=== PATIENT | female | born 1980 | race Caucasian/White ===

== ENCOUNTER 2016-11-04 10:56 | Observation (INO) | payer BC, OTHER ==
[2016-11-04 11:25] LABS: % IMMATURE GRANULYOCYTES 0.4 % (0.0-1.1); ABSOLUTE IMMATURE GRANULOCYTES 0.07 10^3/uL (0.00-0.10); ADD DIFF? NO; ADD MORPH? NO; ADD SCAN? NO; ATYPICAL LYMPHOCYTE FLAG 10 (0-99); FRAGMENT RBC FLAG 0 (0-99); HEMATOCRIT 41.6 % (38.0-47.0); LEFT SHIFT FLG 10 (0-99); LIPEMIA HEMOLYSIS FLAG 80 (0-99); MEAN CELL HEMOGLOBIN 30.7 pg (27.9-34.1); MEAN CELL HEMOGLOBIN CONCENTR. 33.7 g/dL (32.4-36.7); MEAN CELL VOLUME 91.2 fL (81.5-99.8); MEAN PLATELET VOLUME 10.6 fL (8.7-11.7); PLATELET CLUMPS FLAG 0 (0-99); PLATELET COUNT 273 10^3/uL (150-400); RED BLOOD CELL COUNT 4.56 10^6/uL (4.18-5.33); RED CELL DISTRIBUTION WIDTH 12.4 % (11.5-15.2)
[2016-11-04 11:32] VITALS: TEMP 98.1
--- NOTE | 2016-11-04 11:33 | EDPHY ---
H & P Stated Complaint: 9 WEEKS PREG, BLEEDING SINCE 0500 - Personal History LMP (Females 10-55): Current Tetanus/Diphtheria Vaccine: Yes Current Tetanus Diphtheria and Acellular Pertussis (TDAP): Yes - Medical/Surgical History Hx Asthma: No Hx Chronic Respiratory Disease: No Hx Diabetes: No Hx Cardiac Disease: No Hx Renal Disease: No Hx Cirrhosis: No Hx Alcoholism: No Hx HIV/AIDS: No Hx Splenectomy or Spleen Trauma: No Other PMH: PMH- - Social History Smoking Status: Never smoked Time Seen by Provider: 11/04/16 11:12 HPI/ROS: CHIEF COMPLAINT: , vaginal bleeding HISTORY OF PRESENT ILLNESS: 36-year-old female SAB 1, currently approximately 9 weeks , 4 home positive tests within the past 1 week, started experiencing spotting last evening, with development of suprapubic cramping and further vaginal bleeding this morning as well as dizziness. She was unable to ambulate without assistance secondary to dizziness. Arrives via private vehicle. She is complaining of continued mild suprapubic cramping as well as vaginal bleeding and new onset of a vomiting since in the waiting room. She denies: Fever, chills, urinary complaints, trauma, flu-like symptoms. Multiple family members have had cold-like symptoms in the past week which have now resolved. PR[facility] CARE PROVIDER[facility] [place]. Patient recently moved from [place] has no local OBGYN REVIEW OF SYSTEMS: A ten point review of systems was performed and is negative with the exception of the items mentioned in the HPI PAST MEDICAL & SURGICAL HISTORY: SAB 1, currently breast feeding a 10- month-old child SOCIAL HISTORY: nonsmoker PHYSICAL EXAM (Prior to examination, patient consented to physical exam, hands were washed and my usual and customary physical exam procedures followed) 1) GENERAL: Well-developed, well-nourished, alert and oriented. Appears uncomfortable. 2) HEAD: Normocephalic, atraumatic 3) HEENT: Pupils equal, round, reactive to light bilaterally. Sclera anicteric. Nasopharynx, oropharynx, clear, no lesions. 4) NECK: Full range of motion, no meningeal signs. 5) LUNGS: Clear auscultation bilaterally, no wheezes, no rhonchi, no retractions. 6) HEART: Regular rate and rhythm, no murmur, no heave, no gallop. 7) ABDOMEN: No guarding, no rebound, no focal tenderness, negative McBurney's, negative Rosales's, negative Rovsing's, negative peritoneal sign, I am unable to elicit any abdominal pain 8) MUSCULOSKELETAL: Moving all extremities, no focal areas of tenderness, no obvious trauma. No peripheral edema or discoloration. 9) BACK: No CVA tenderness. 10) SKIN: No rash, no petechiae. 11) PELVIC (with female tech Radha at bedside): Normal female external genitalia, blood on the external genitalia, multiple clots removed in the vaginal vault. Os is open active bleeding DIFFERENTIAL DIAGNOSIS: no particular include but limited to spontaneous miscarriage, completed miscarriage, ectopic (Michaela Escobedo) Constitutional: Initial Vital Signs Temperature (C) 36.7 C 11/04/16 10:59 Heart Rate 69 11/04/16 10:59 Respiratory Rate 20 11/04/16 10:59 Blood Pressure 98/73 L 11/04/16 10:59 O2 Sat (%) 100 11/04/16 10:59 O2 Delivery Mode Room Air Allergies/Adverse Reactions: No Known Allergies Allergy (Unverified 11/04/16 11:00) Home Medications: Medication Instructions Recorded NK [No Known Home Meds] 11/04/16 Medical Decision Making ED Course/Re-evaluation: PHYSICIAN DOCUMENTATION: The patient was evaluated and managed by the Physician Tube Inspector and myself. I have reviewed the chart and agree with the findings and plan of care as documented. In addition, I examined the patient myself at 1305. History confirmed as bleeding today, history of . Physical findings as follows : Blood pressure 95 to 86 systolic while I am in the room, alert and normally conversant. Admission to Labor and delivery for OBGYN consultation and probable D and C, hematocrit decreasing and hypotensive in the emergency department with continued bleeding. I am the secondary supervising physician. (Eric Baron) Serial evaluations performed on patient. Discussed her imaging results showing active spontaneous . She is passing multiple clots , has active vaginal bleeding with drop in hematocrit. Discussed with patient my recommendation for admission for possible dilatation curettage. Patient is agreeable with this. She remains NPO since last evening. Patient also seen exam by Dr. Eric Baron. 1:02 p.m.: Phone consultation with Dr. Karmen Oconnor who will admit patient, planned for likely dilatation and curettage. Request that patient go from the emergency department to Labor and delivery floor 1st and she will consult patient there . (Michaela Escobedo) - Data Points Laboratory Results: Laboratory Results 11/04/16 11:15 11/04/16 11:15 11/04/16 11/04/16 11/04/16 12:43 11:51 11:15 WBC 15.98 H 10^3/uL (3.80-9.50) RBC 4.56 10^6/uL (4.18-5.33) Hgb 14.0 g/dL (12.6-16.3) POC Hgb 12.2 L gm/dL (12.3-15.9) Hct 41.6 % (38.0-47.0) POC Hct 36 % (35.5-47.5) MCV 91.2 fL (81.5-99.8) MCH 30.7 pg (27.9-34.1) MCHC 33.7 g/dL (32.4-36.7) RDW 12.4 % (11.5-15.2) Plt Count 273 10^3/uL (150-400) MPV 10.6 fL (8.7-11.7) Neut % (Auto) 85.4 H % (39.3-74.2) Lymph % (Auto) 9.8 L % (15.0-45.0) Griggs % (Auto) 3.6 L % (4.5-13.0) Eos % (Auto) 0.4 L % (0.6-7.6) Baso % (Auto) 0.4 % (0.3-1.7) Nucleat RBC Rel Count 0.0 % (0.0-0.2) Absolute Neuts (auto) 13.64 H 10^3/uL (1.70-6.50) Absolute Lymphs (auto) 1.57 10^3/uL (1.00-3.00) Absolute Monos (auto) 0.57 10^3/uL (0.30-0.80) Absolute Eos (auto) 0.07 10^3/uL (0.03-0.40) Absolute Basos (auto) 0.06 10^3/uL (0.02-0.10) Absolute Nucleated RBC 0.00 10^3/uL (0-0.01) Immature Gran % 0.4 % (0.0-1.1) Immature Gran # 0.07 10^3/uL (0.00-0.10) POC Sodium 140 mEq/L (134-144) Sodium 140 mEq/L (134-144) POC Potassium 4.4 mEq/L (3.3-5.0) Potassium 4.5 mEq/L (3.5-5.2) POC Chloride 107 mEq/L (96-108) Chloride 106 mEq/L (97-110) Carbon Dioxide 21 L mEq/l (22-31) Anion Gap 13 mEq/L (8-16) POC BUN 13 mg/dL (7-23) BUN 12 mg/dL (7-23) Creatinine 0.6 mg/dL (0.6-1.0) POC Creatinine 0.6 mg/dL (0.6-1.2) Estimated GFR > 60 Glucose 124 H mg/dL (70-100) POC Glucose 115 H mg/dL (70-100) Calcium 9.3 mg/dL (8.5-10.4) Beta HCG, Qual POSITIVE Beta HCG, Quant 4723.20 H mIU/mL (0-4.83) Patient ABO/Rh A POSITIVE Medications Given: Discontinued Medications Sodium Chloride (Ns) 1,000 mls @ 0 mls/hr IV ONCE ONE PRN Reason: Wide Open Stop: 11/04/16 12:24 Last Admin: 11/04/16 12:23 Dose: 1,000 mls Point of Care Test Results: 11/04/16 12:43 POC Sodium 140 POC Potassium 4.4 POC Chloride 107 POC BUN 13 POC Creatinine 0.6 POC Glucose 115 H Departure - Departure Disposition: [facility] Inpatient Acute Clinical Impression: Miscarriage, Anemia Condition: Fair
[2016-11-04 11:36] LABS: ANION GAP 13 mEq/L (8-16); CALCIUM 9.3 mg/dL (8.5-10.4); CARBON DIOXIDE 21 mEq/l (22-31); CHLORIDE 106 mEq/L (97-110); CREATININE 0.6 mg/dL (0.6-1.0); GLOMERULAR FILTRATION RATE > 60; GLUCOSE 124 mg/dL (70-100); POTASSIUM 4.5 mEq/L (3.5-5.2); SODIUM 140 mEq/L (134-144)
--- NOTE | 2016-11-04 11:39 | CPEKG ---
Heart Rate: 62 RR Interval: 968 P-R Interval: 172 QRSD Interval: 84 QT Interval: 448 QTC Interval: 455 P [place]: 1 QRS [place]: 69 T Wave [place]: 54 EKG Severity - NORMAL ECG - EKG Impression: SINUS RHYTHM Electronically Signed By: Eric Baron 04-Nov-2016 13:41:13
[2016-11-04] MEDS ORDERED: NS 1,000 ML IV ONE ×2 (12:23→13:20)
--- NOTE | 2016-11-04 12:59 | US ---
Ultrasound Pelvis Complete (Transabdominal and Endovaginal) Including Duplex/Doppler Imaging History: evaluation. Vaginal bleeding. Pain. Technique: Transabdominal and endovaginal ultrasound images were obtained. Endovaginal images obtain ed for better evaluation of the uterine myometrium and adnexa. Duplex/Doppler imaging of adnexa. Findings: Uterus measures 11.3 x 5.8 x 5.2 cm. Endometrial thickness is 7 mm. There is a focal fluid collection present in the lower uterine segment near the internal cervical os which could represent a abnormal gestational sac. No parts are identified within the fluid collection. This fluid col lection measures 2.8 x 1.2 x 1.7 cm in size. Calcified 1.5 cm fibroid in the fundal myometrium. Right ovary measures 2.6 x 1.7 x 2.8 cm. Left ovary measures 2.9 x 2.9 x 1.6 cm. No adnexal masses. No significant free fluid in the pelvis. Color Doppler flow to both ovaries without torsion. Impression: Abnormal fluid collection in the lower uterine segment, potential abnormal gestational sa c, without parts. This may represent a spontaneous in progress. Follow-up sonography m ay be of benefit as clinically appropriate. Results called to Chuckie Escobedo PA-C, at 12:50 PM.
[2016-11-04 13:24] VITALS: BP 95/72; PULSE 65; RESP 18; O2SAT 98
[2016-11-04] MEDS ORDERED: DOXYCYCLINE INJ 100 MG in NS 250 ML IV ONE (14:00)
[2016-11-04] MEDS ORDERED: MISOPROSTOL 200 MCG TAB ONE (14:12)
[2016-11-04] MEDS ORDERED: MIDAZOLAM 2 MG/2 ML VIAL ONE (14:12)
[2016-11-04] MEDS ORDERED: fentaNYL 100 MCG/2 ML INJ ONE (14:12)
[2016-11-04] MEDS ORDERED: PROPOFOL/EMULSION 500 MG/50 ML BOTTLE IV ONE (14:13)
[2016-11-04] MEDS ORDERED: AMMONIA AROMATIC 1 EACH AMP IH ONE (14:46)
--- NOTE | 2016-11-04 21:37 | GOP ---
[f rep st] OPERATIVE REPORT DATE OF OPERATION: 11/04/2016 SURGEON: Karmen Oconnor DO STRATEGIC COMMUNICATIONS SPECIALIST: None. ANESTHESIA: LMA. PREOPERATIVE DIAGNOSIS: Spontaneous , actively bleeding, hypotension. POSTOPERATIVE DIAGNOSIS: Spontaneous , actively bleeding, hypotension. PROCEDURE PERFORMED: Suction dilation and curettage. INDICATIONS FOR OPERATION: The patient is a 36-year-old, 3, para 2-0-0- 2 with the last menstrual period 09/07/2016 at 8 weeks and 1 day who presented today with heavy vaginal bleeding, clots, and cramping as well as nausea, vomiting. The patient was seen in emergency room where she was found to be actively bleeding, having a dilated cervix and passing clots. The patient had dropped her hematocrit from 45 to 41 in just about an hour. A pelvic ultrasound was done that did show heterogeneous mass in the lower uterine segment about 2 x 2 cm. Patient stated she passed what looked like tissue. The patient was counseled to proceed with a suction dilation and curettage secondary to active bleeding and her being hypotensive. Consents were obtained ; risks, benefits, and alternatives were reviewed with the patient. The patient understands the risks and wants to proceed with the surgery at this time. FINDINGS: The uterus was gently sounded to 9-10 cm. The os was dilated to about 3 cm. Active bleeding noted. Moderate amount of clots were noted in the vault as well as cervical os. An 8 mm curved suction curette was used. Minimal bleeding noted at the end of the procedure. Minimal products noted as well. The patient is A positive. No need for RhoGAM. SPECIMENS: Sent to pathology. ESTIMATED BLOOD LOSS: About 50 cc. DESCRIPTION OF PROCEDURE: Patient was taken to the operating room, where anesthesia was placed without difficulty. The patient was then placed in dorsal lithotomy position, prepped and draped in usual sterile surgical fashion. The patient was given 100 mg of doxycycline IV prior to the start of the case. The bladder was then emptied and drained of approximately 75 cc of urine. A weighted speculum was then placed in the posterior vagina. Cervix was grasped with single-tooth tenaculum. The uterus was then gently sounded to 9-10 cm. Cervix was already dilated to about 3 cm with findings as noted above. An 8 mm curved suction curette was then introduced into the uterus, passed to the fundus, and suction curette was performed. This was done multiple times until all products of conception were evacuated. We then turned our attention to sharp curettage. This was performed until a gritty surface was appreciated in all 4 quadrants of the uterus. We took 1 more pass with the suction curette to remove any remaining products of conception. There was no further bleeding noted. The patient did receive 600 mcg of Cytotec per rectum. The patient tolerated procedure well. There were no complications. Instrument and sponge count correct x2. The patient was taken out of dorsal lithotomy position, awakened, and then taken to recovery room in stable condition. COMPLICATIONS: None. IV FLUIDS: 600 cc LR. URINE OUTPUT: 75 cc emptied prior to the procedure via red rubber. /[id number]/MODL MTDD
--- NOTE | 2016-11-05 06:19 | SOAPPROG ---
SOAP Progress Note Assessment/Plan: Assessment: ff@u scant rubra lochia dtrs1+ bilaterally negative homens no clonus Plan:discharge to home with instructions 11/05/16 06:18 Subjective: Feeling better no longer dizzy. Able to walk to the bathroom without difficulty Objective: Vital Signs Temp Pulse Resp BP Pulse Ox 36.7 C 65 18 95/72 L 98 11/04/16 10:59 11/04/16 13:23 11/04/16 13:23 11/04/16 13:23 11/04/16 13:23 11/04/16 11/05/16 11/06/16 05:59 05:59 05:59 Intake Total 1999 Balance 1999 Physical Exam - Physical Exam General Appearance: WD/WN, alert, no apparent distress Abdomen: other (ff@u) Pelvic Exam: vaginal bleeding (scant rubra LOCHIA) Skin: normal color, warm/dry Extremities: normal range of motion, Joshua's sign (negative bilaterally) Neuro/Psych: no motor/sensory deficits, alert, normal mood/affect, oriented x 3 ICD10 Worksheet Patient Problems: Problems Problem Status Diagnosed Anemia Acute Hypotension Acute SAB (spontaneous ) Acute
[2016-11-05 06:43] LABS: HEMATOCRIT 33.9 % (38.0-47.0); HEMOGLOBIN 11.4 g/dL (12.6-16.3)
== END 2016-11-05 09:45 | disposition home or self-care (01) ==
LOC: FLD 13:32
PROVIDERS: ADMIT Obstetrics & Gynecology; ATTEND Obstetrics & Gynecology
PROC: 10D17ZZ Extraction of Products of Conception, Retained, Via Natural or Artificial Opening (ICD-10-PCS; principal; 2016-11-04)
DX: O03.9 Complete or unspecified spontaneous abortion without complication (principal); Z3A.09 9 weeks gestation of pregnancy
CPT/HCPCS: 59812; 76801; 93005; G0378; P9016; 82947-QW; 96374; J2250; J2704; J3010

== ENCOUNTER → 2018-05-13 | Outpatient (CLI) | payer OTHER | LOC: FIMAGING 09:44 | PROVIDERS: ATTEND Obstetrics & Gynecology | DX: O09.522 Supervision of elderly multigravida, second trimester (principal); Z3A.18 18 weeks gestation of pregnancy ==

== ENCOUNTER 2018-09-07 11:55 | Observation (INO) | payer OTHER ==
[2018-09-07] MEDS ORDERED: LR 1,000 ML IV ONE (12:30)
[2018-09-07] MEDS ORDERED: ACETAMINOPHEN 325 MG TAB PO ONE (12:30)
[2018-09-07 13:15] LABS: PLATELET COUNT 220 10^3/uL (150-400)
[2018-09-07] MEDS ORDERED: MAG HYDROX/AL HYDROX/SIMETH 30 ML UDCUP PO ONE (14:00)
[2018-09-07] MEDS ORDERED: FAMOTIDINE 20 MG TAB PO ONE (14:00)
--- NOTE | 2018-09-07 17:56 | GHP ---
DATE OF ADMISSION: 09/07/2018 ADMISSION DIAGNOSIS: Abdominal pain. HISTORY OF PRESENT ILLNESS: The patient is a 37-year-old 4, para 2-0-1-2 at 38 and 5/7 weeks ' gestation who has had a 2-week history of left-sided upper abdominal rib pain. She has had increas ed pain with movement. Today the patient sneezed and had severe increase in pain, so she has present ed to labor and delivery for evaluation. The patient is having good movement. She denies cont ractions. She denies any headaches, changes in vision, nausea, vomiting, fevers, or chills. The pat ienuris had a massage and said the massage therapist said she is very inflamed on the left side. The pa tienuris is tearful discussing the pain because she is frustrated because she cannot do anything that re lieves the pain. Staying still, patient is comfortable; however, if she moves at all, she has pain. Patient's vital signs were stable. Her pulse ox was 96% and 97% on room air. Preeclampsia labs wer e essentially normal. EXAM: GENERAL APPEARANCE: Alert and oriented x3. She is tearful in discussing the pain. PSYCH: A ppropriate affect. MUSCULOSKELETAL: Grossly intact heart is regular regular. LUNGS: Clear to ausc ultation bilaterally. ABDOMEN: Gravid, nondistended, nontender. EXTREMITIES: Reveal no calf tende rness or edema. PELVIC: Deferred. heart tracing is category 1. On exam in her upper left ab domen, there is some pain in her left intercostal space as well as just below her left ribs and her u pper abdomen. It is not necessarily reproducible. I had a long discussion with the patient and the father of the baby about possible etiologies. Preec lampsia has been ruled out. We discussed the possibility of PE. However, her pulse ox is normal, an d she is only having pain with movement. This is likely musculoskeletal. She is to follow up in the office on Saturday, and we discussed magnesium and calcium supplements, hydration, heat and ice, hazel guzman feels better. Continue Tylenol. We discussed PIH precautions and PE, DVT precautions. The pa tienuris is to call if she has any symptoms of shortness of breath or increase in pain or has any furthe r questions. She declines a prescription for stronger pain medicine and will just take Tylenol. /[id number]/MODL
== END 2018-09-07 17:20 | disposition home or self-care (01) ==
LOC: FLD 11:55
PROVIDERS: ADMIT Obstetrics & Gynecology; ATTEND Obstetrics & Gynecology
DX: O99.89 Other specified diseases and conditions complicating pregnancy, childbirth and the puerperium (principal); O09.523 Supervision of elderly multigravida, third trimester; R10.12 Left upper quadrant pain; Z3A.38 38 weeks gestation of pregnancy
CPT/HCPCS: 59025; G0378

== ENCOUNTER 2018-10-05 19:18 | Inpatient (IN) | payer OTHER ==
[2018-10-05] MEDS ORDERED: IBUPROFEN 600 MG TAB PO PRN (19:38)
[2018-10-05] MEDS ORDERED: TERBUTALINE SULFATE 1 MG/ML VIAL IV PRN (19:38)
[2018-10-05] MEDS ORDERED: OLIVE OIL 118 ML BTL MISC PRN (19:38)
[2018-10-05] MEDS ORDERED: OXYTOCIN/RINGERS LACTATE 1,000 ML IV PRN (19:38)
[2018-10-05] MEDS ORDERED: LIDOCAINE 1% 300 MG/30 ML SDV SC PRN (19:38)
[2018-10-05] MEDS ORDERED: EPSOM SALT 454 GM TP PRN (19:38)
[2018-10-05] MEDS ORDERED: MISOPROSTOL 200 MCG TAB PR PRN (19:38)
[2018-10-05] MEDS ORDERED: LR 1,000 ML IV PRN (19:38)
--- NOTE | 2018-10-05 19:59 | PDGENHP ---
History and Physical - Chief Complaint SROM at 1750 - copious, clear - History of Present Illness 37 yo at 39w4d with SROM, clear, copious at 1750. Onset of mild contractions shortly after that. Uncomplicated course, care at [facility] since first trimester. Hx of pp depression after P2, has done well this . Fragile X Vargas zone - but no implications for . Good FM, no VB. No NARVAEZ, vis changes, epigastric pain or chest pain. labs: GBS neg A pos Rub Imm Neg Innatal Std panel with vargas zone for fragile X UDS neg RPR-NR HBsAg neg HIV neg Varicella and parvo imm pap neg GC/CHL neg UA / Ucx neg/neg 28 wk GTT 113 28 wk h/h 13.3/38.3 Ob Hx: 2013 7#12oz 40 wk, pushed < 15min, epidural, female - [place] 2015 6#10oz 37 wk, pushed < 15 min, epidural, male - [place] 10/2016 D&C for MAB, c/b hemorrhage and 2 u transfusion History Information - Allergies/Home Medication List Allergies/Adverse Reactions: No Known Allergies Allergy (Verified 10/05/18 19:38) Home Medications: 10/05/18 [Last Taken Unknown] I have personally reviewed and updated: family history, medical history, social history, surgical history Past Medical History: pp depression after P2, was taking care of her parents too , worse with sleep deprivation. Pyelonephritis age 17 - Surgical History Additional surgical history: D&C for MAB 10/2016 - Family History Positive for: cancer (Father from lung ca, was a smoker) Additional family history: M- Crohn's / ulcerative colitis, depression, hx of Etoh abuse - Social History Smoking Status: Never smoked Alcohol Use: None Drug Use: None Review of Systems Review of Systems: ROS: 10pt was reviewed & negative except for what was stated in HPI & below Physical Exam Physical Exam: FHR - 120 reactive, Cat 1 toco - q4-5 min VS 36.5 68 129/84 97% on RA Constitutional: no apparent distress, appears nourished Eyes: PERRL, anicteric sclera, EOMI Ears, Nose, Mouth, Throat: moist mucous membranes, hearing normal, ears appear normal Cardiovascular: regular rate and rhythym, no murmur, rub, or gallop Respiratory: no respiratory distress, no rales or rhonchi, clear to auscultation Gastrointestinal: normoactive bowel sounds (gravid at term, nontender when not chandler) Genitourinary: no bladder fullness Skin: warm, normal color Musculoskeletal: full muscle strength, no muscle tenderness Neurologic: AAOx3, sensation intact bilaterally Psychiatric: interacting appropriately, not anxious Lymph, Heme, Immunologic: no cervical LAD Assessment & Plan Assessment: 37 at 39w4d, with SROM (grossly), early labor, GBS neg. Offered observation vs. IOL. Prefers observation, ambulation for now. Will be considering an epidural. Jannette Mccall MD, FACOG [facility]
[2018-10-05 20:33] LABS: PLATELET COUNT 226 10^3/uL (150-400)
[2018-10-05] MEDS ORDERED: AMMONIA AROMATIC 1 EACH AMP IH ONE (20:48)
[2018-10-05] MEDS ORDERED: OXYTOCIN 10 UNIT/ML VIAL ONE (20:48)
[2018-10-05] MEDS ORDERED: OLIVE OIL 118 ML BTL ONE (20:48)
[2018-10-05] MEDS ORDERED: TERBUTALINE SULFATE 1 MG/ML VIAL ONE (20:48)
[2018-10-05] MEDS ORDERED: LIDOCAINE 1% 300 MG/30 ML SDV ONE (20:48)
[2018-10-05] MEDS ORDERED: MISOPROSTOL 200 MCG TAB ONE (20:49)
[2018-10-05] MEDS ORDERED: fentaNYL 100 MCG/2 ML INJ ONE (23:03)
[2018-10-05] MEDS ORDERED: fentaNYL 2MCG/ML/BUP 0.1% RTU 100 ML BAG EP ONE (23:04)
[2018-10-05] MEDS ORDERED: PHENYLEPHRINE HCL 100 MCG/ML SYR ONE (23:04)
[2018-10-05] MEDS ORDERED: BUPIVACAINE/EPI 0.5% 30 ML SDV ONE (23:04)
[2018-10-05] MEDS ORDERED: LR 500 ML IV SCH (23:45)
[2018-10-05] MEDS ORDERED: fentaNYL 2MCG/ML/BUP 0.1% RTU 100 ML EP SCH (23:45)
[2018-10-05] MEDS ORDERED: ONDANSETRON 4 MG/2 ML VIAL IVP PRN (23:46)
[2018-10-05] MEDS ORDERED: METOCLOPRAMIDE 10 MG/2 ML VIAL IVP PRN (23:46)
[2018-10-05] MEDS ORDERED: PHENYLEPHRINE HCL 100 MCG/ML SYR IVP PRN (23:46)
--- NOTE | 2018-10-05 23:46 | PREANESOB ---
Obstetric Pre-Anesthesia Info - General Info : 4 Para: 2 YOSSI: 10/08/18 Gestational Age: 39 week(s) and 4 day(s) Anesthesia Allergies/Adverse Reactions: Allergy/AdvReac Type Severity Reaction Status Date / Time No Known Allergies Allergy Verified 10/05/18 19:38 Home Medications: Medication Instructions Recorded 10/05/18 Visit Medications: Generic Name Dose Route Start Last Admin Trade Name Freq PRN Reason Stop Dose Admin Lactated Ringer's 1,000 mls @ 0 mls/hr 10/05/18 19:38 10/05/18 23:09 Lr IV 10/06/18 19:37 1,000 mls PRN PRN Administration SEE PROTOCOL CONDITIONS Protocol Per Protocol Oxytocin/Lactated Ringer's 1,000 mls @ 125 mls/hr 10/05/18 19:38 Pitocin 20 Units/Lr (Premix) IV PRN PRN Post bleeding Ibuprofen 600 mg 10/05/18 19:38 Motrin PO ONCE PRN post , pain Lidocaine HCl 300 mg 10/05/18 19:38 Lidocaine Hcl 1% SC 04/03/19 19:37 ONCE PRN episiotomy Magnesium Sulfate 454 gm 10/05/18 19:38 Epsom Salt TP 04/03/19 19:37 Q1H PRN perineal discomfort Misoprostol 800 - 1,000 mcg 10/05/18 19:38 Cytotec RI ONCE PRN Vaginal Atony/Bleeding Amalia Oil 118 ml 10/05/18 19:38 Sweet Oil MISC 04/03/19 19:37 ONCE PRN perineal massage Terbutaline Sulfate 0.25 mg 10/05/18 19:38 Brethine IV 04/03/19 19:37 ONCE PRN Tachysystole Discontinued Medications Generic Name Dose Route Start Last Admin Trade Name Freq PRN Reason Stop Dose Admin Ammonia (Aromatic Spirit) Confirm 10/05/18 20:48 Ammonia Aromatic Administered 10/05/18 20:49 Dose 1 each IH .STK-MED ONE Bupivacaine HCl/Epinephrine Bitart Confirm 10/05/18 23:04 Bupivacaine/Epi Administered 10/05/18 23:05 Dose 30 ml .ROUTE .STK-MED ONE Fentanyl Confirm 10/05/18 23:03 Sublimaze Administered 10/05/18 23:04 Dose 100 mcg .ROUTE .STK-MED ONE Fentanyl/Bupivacaine HCl Confirm 10/05/18 23:04 Fentanyl/Bupivacaine/Ns 2 Mcg/Ml 0.1% (Premix Administered 10/05/18 23:05 Dose 100 ml EP .STK-MED ONE Lidocaine HCl Confirm 10/05/18 20:48 Lidocaine Hcl 1% Administered 10/05/18 20:49 Dose 300 mg .ROUTE .STK-MED ONE Misoprostol Confirm 10/05/18 20:49 Cytotec Administered 10/05/18 20:50 Dose 1,000 mcg .ROUTE .STK-MED ONE Amalia Oil Confirm 10/05/18 20:48 Sweet Oil Administered 10/05/18 20:49 Dose 118 ml .ROUTE .STK-MED ONE Oxytocin Confirm 10/05/18 20:48 Pitocin Administered 10/05/18 20:49 Dose 40 unit .ROUTE .STK-MED ONE Phenylephrine HCl Confirm 10/05/18 23:04 Neosynephrine Administered 10/05/18 23:05 Dose 1,000 mcg .ROUTE .STK-MED ONE Terbutaline Sulfate Confirm 10/05/18 20:48 Brethine Administered 10/05/18 20:49 Dose 1 mg .ROUTE .STK-MED ONE - Vital Signs Height/Weight (Nursing): Height 160.02 cm Weight 84.368 kg Labs: 10/05/18 20:15 Patient ABO/Rh A POSITIVE 10/05/18 20:15
--- NOTE | 2018-10-06 00:01 | OBDEL ---
Info Type: Vaginal Presentation at Delivery: Vertex L&D Analgesia/Anesthesia Type: Epidural GBS+: No Intrapartum Medications: Generic Name Dose Route Start Last Admin Trade Name Freq PRN Reason Stop Dose Admin Lactated Ringer's 1,000 mls @ 0 mls/hr 10/05/18 19:38 10/05/18 23:09 Lr IV 10/06/18 19:37 1,000 mls PRN PRN Administration SEE PROTOCOL CONDITIONS Protocol Per Protocol - Hospital Course Intrapartum: 10/06/18 00:00 Pt arrived after SROM, and contractions became more intense. She was 3 cm dilated prior to receiving an epidural. She progressed without incident to completely dilated. Indications for Delivery: Spontaneous Labor, SROM Vaginal Delivery - Delivery Provider Delivery Physician/CNM: Jannette Mccall - Labor and Delivery Onset of Contractions Date: 10/05/18 Onset of Contractions Time: 17:50 Onset of Contractions Type: Spontaneous Rupture of Membranes Date: 10/05/18 Rupture of Membranes Time: 17:50 Rupture of Membranes Type: Spontaneous Amniotic Fluid Color: Clear Dilation Complete Date: 10/06/18 Dilation Complete Time: 00:00 Placenta Delivery Date: 10/06/18 Placenta Delivery Time: 00:35 Total Hours of Labor: 6 Laceration: 1st Degree Repair: 3-0, Vicryl Vaginal Sponge Count Correct: Yes Vaginal Needle Count Correct: Yes Vaginal Sweep Performed: Yes EBL: 250 Delivery Events: Shoulder Dystocia (x 90sec total. No resolution with Gaby , suprapubic pressure, unable initially to deliery posterior arm but able to rotate posterior (left shoulder) anteriorly to release right shoulder from behind the pubic bone.) Delivery Comment: Pt arrived in early labor after SROM. She received an epidural at 3 cm dilated , then rapidly progressed to complete dilation. She pushed for 12 min. Spontaneous vaginal delivery of the vertex, SCOTT, over an intact perineum. No nuchal cord. Bulb suctioned on the perineum. Turtle sign immediately noted and time marked. Gaby maneuver immediately performed. Gentle traction on the vertex, no release of dystocia. Pt instructed to stop pushing. Suprapubic pressure in an anterior rotation direction performed by STORM Bowens, who stepped up on a stool immediately. STORM Adhikari, also present and stepped in to hold pt's leg. No resolution of dystocia. Attempted delivery of posterior (left arm) - able to bring hand to perineum but unable to initially sweep arm across chest, but with pressure behind left shoulder, was able to rotate shoulders to release the right anterior shoulder from behind the pubic bone, and gentle traction on the vertex effected easy delivery of the body. Infant was delivered to the maternal abdomen. After 1 minute, the cord was clamped and cut. Cord segment and cord blood was obtained. Placenta delivered minutes after that. 1st degree laceration was repaired with 3.0 Vicryl. Examination of the infant immediately after repair - revealed both arms moving and hands grasping. Right shoulder was anterior. Counts were correct. Pt was cleaned up and and patient left in stable condition in room with RN. - Medications Labor Augmentation/Induction Methods Used: None Data YOSSI: 10/08/18 Gestational Age: 39 week(s) and 4 day(s) Irizarry Delivery Date: 10/06/18 Delivery Time: 00:30 ("Mcgrath") Sex of Infant: Male Score (1 Min): 8 Score (5 Min): 9 Shoulder Dystocia Time Head Delivered: 00:29 Time Body Delivered: 00:30 1st Maneuver Attempted Maneuvers: Gaby 2nd Maneuver Attempted Maneuvers: Suprapubic Pressure 3rd Maneuver Attempted Maneuvers: Posterior Arm Release 4th Maneuver Attempted Maneuvers: Alexander's Maneuver Dystocia Comment: 90 seconds total Infant moving both arms and grasping with both hands within minutes of delivery. ICD10 Worksheet Patient Problems: Problems Problem Status Onset Multiparous Acute Vaginal delivery Acute Vaginal delivery Acute - ICD10 Problem Qualifiers (1) Multiparous (2) Vaginal delivery (3) Vaginal delivery
[2018-10-06] MEDS ORDERED: SIMETHICONE 80 MG TAB CHEW PO PRN (01:12)
[2018-10-06] MEDS ORDERED: HYDROCORTISONE 0.5% CREAM TP PRN (01:12)
[2018-10-06] MEDS ORDERED: OXYTOCIN/RINGERS LACTATE 500 ML IV SCH (01:30)
--- NOTE | 2018-10-06 01:41 | POSTANESTH ---
Post Anesthetic Evaluation Cardiovascular Status: Similar to Pre-Op Cond Respiratory Status: Similar to Pre-op Cond. Level of Consciousness/Mental Status: Can Participate in Eval, Alert and Oriented Pain Control: Adequate, Prn Tx Ordered Nausea/Vomiting Control: Adequate, Prn Tx Ordered Complications Possibly Related to Anesthesia: None Noted
[2018-10-06] MEDS: ACETAMINOPHEN 325 MG TAB PO SCH ×4 (02:25→17:49)
[2018-10-06] MEDS: DOCUSATE SODIUM 100 MG CAP PO PRN (08:37)
[2018-10-06] MEDS: IBUPROFEN 600 MG TAB PO SCH ×3 (08:38→20:46)
--- NOTE | 2018-10-06 10:36 | OBPP ---
Progress Note Assessment/Plan: Assessment: 37 y/o PPD 0 s/p doing well. Plan: Pt and baby are doing well this am. Ibuprofen scheduled for cramping pain. Routine PPC. 10/06/18 10:35 Subjective/ Course: 10/06/18 10:33 Pt is doing well this am. She is having mod cramping controlled with Ibuprofen. Min lochia, seun reg diet, no difficulties with voiding or ambulating. Breast feeding is going well, they are working on his shallow latch , but she denies nipple pain now. Objective: 10/05/18 20:15 Patient ABO/Rh A POSITIVE 10/05/18 20:15 Temp Pulse Resp BP Pulse Ox 36.2 C 54 L 16 95/58 L 95 10/06/18 08:30 10/06/18 08:30 10/06/18 08:30 10/06/18 08:30 10/06/18 08:30 Uterine Position/Fundal Height: Umbilicus -3 Uterine Tone: Firm Physical Exam - Physical Exam General Appearance: alert, no apparent distress Neck: non-tender, full range of motion, supple Respiratory: chest non-tender, lungs clear, normal breath sounds Cardiac/Chest: regular rate, rhythm Abdomen: normal bowel sounds Extremities: swelling (no), Joshua's sign (neg)
[2018-10-07] MEDS: ACETAMINOPHEN 325 MG TAB PO SCH ×4 (00:16→19:29)
[2018-10-07] MEDS: DOCUSATE SODIUM 100 MG CAP PO PRN ×3 (00:17→22:03)
[2018-10-07] MEDS: IBUPROFEN 600 MG TAB PO SCH ×4 (03:29→22:02)
--- NOTE | 2018-10-07 13:27 | OBPP ---
Progress Note Assessment/Plan: Assessment: 1) s/p PPD # 1 - pt is stable 2) Anemia - pt is asymptomatic Plan: Continue routine pp care Will start iron, cont colace support prn Plan for d/c home in am 16 10/07/18 13:22 Subjective/ Course: 10/06/18 10:33 Pt is doing well this am. She is having mod cramping controlled with Ibuprofen. Min lochia, seun reg diet, no difficulties with voiding or ambulating. Breast feeding is going well, they are working on his shallow latch , but she denies nipple pain now. 10/07/18 13:24 Pt seen and examined. Doing well with no complaints. She is a little sore and having mild cramping when he latches. Relief with Ibu. Mod lochia. Voiding without difficulty. Still working with on baby boy's latch. Wants to go home tomorrow around noon. Objective: 10/07/18 03:30 Patient ABO/Rh A POSITIVE 10/05/18 20:15 Temp Pulse Resp BP Pulse Ox 36.4 C 51 L 16 109/62 96 10/07/18 03:30 10/07/18 03:30 10/07/18 03:30 10/07/18 03:30 10/07/18 03:30 Uterine Position/Fundal Height: Umbilicus -2 Uterine Tone: Firm Physical Exam - Physical Exam General Appearance: WD/WN, alert, no apparent distress Respiratory: lungs clear, normal breath sounds Cardiac/Chest: regular rate, rhythm Abdomen: normal bowel sounds, non-tender, soft, flatus (+) Extremities: non-tender, normal inspection Skin: normal color, warm/dry Neuro/Psych: alert, normal mood/affect, oriented x 3
[2018-10-07] MEDS: FERRO-SEQUELS 65 MG TAB.ER PO SCH (16:09)
[2018-10-08] MEDS: ACETAMINOPHEN 325 MG TAB PO SCH ×2 (02:44→08:21)
[2018-10-08] MEDS: IBUPROFEN 600 MG TAB PO SCH ×2 (04:07→10:09)
[2018-10-08] MEDS: FERRO-SEQUELS 65 MG TAB.ER PO SCH (08:21)
[2018-10-08] MEDS: DOCUSATE SODIUM 100 MG CAP PO PRN (08:21)
[2018-10-08 10:15] VITALS: BP 103/66
--- NOTE | 2018-10-08 10:24 | OBPP ---
Progress Note Assessment/Plan: Assessment: pod#1 s/p RLTCS -hx prior c section presented in active labor anemia breast feeding routine post and post operative care A+/RI/GBS - Plan: 10/08/18 10:22 Subjective/ Course: 10/06/18 10:33 Pt is doing well this am. She is having mod cramping controlled with Ibuprofen. Min lochia, seun reg diet, no difficulties with voiding or ambulating. Breast feeding is going well, they are working on his shallow latch , but she denies nipple pain now. 10/07/18 13:24 Pt seen and examined. Doing well with no complaints. She is a little sore and having mild cramping when he latches. Relief with Ibu. Mod lochia. Voiding without difficulty. Still working with on baby boy's latch. Wants to go home tomorrow around noon. 10/08/18 10:23 patient is doing well. is exhausted. pain is well controlled. having mild cramping. normal lochia. denies headache and changes in vision. working on breast feeding. ambulating in the room. Objective: 10/07/18 03:30 Patient ABO/Rh A POSITIVE 10/05/18 20:15 Temp Pulse Resp BP Pulse Ox 36.6 C 54 L 18 103/66 96 10/08/18 08:00 10/08/18 08:00 10/08/18 08:00 10/08/18 08:00 10/07/18 20:00 Physical Exam - Physical Exam Neck: non-tender, full range of motion Respiratory: chest non-tender, lungs clear, normal breath sounds Cardiac/Chest: normal peripheral pulses, regular rate, rhythm Abdomen: normal bowel sounds, non-tender, other (fundus firm and non tender) Extremities: normal range of motion, non-tender, normal inspection, normal capillary refill Skin: normal color, warm/dry Neuro/Psych: no motor/sensory deficits, alert, normal mood/affect, oriented x 3
--- NOTE | 2018-10-08 11:05 | OBGCSDC ---
General Delivery Information - General Info : 4 Para: 3 Abortions: 1 Type: Vaginal L&D Analgesia/Anesthesia Type: Epidural Admission Date: 10/05/18 Labs: Patient ABO/Rh A POSITIVE 10/05/18 20:15 Hct 35.7 % (38.0-47.0) L 10/07/18 03:30 - Hospital Course Intrapartum: 10/06/18 00:00 Pt arrived after SROM, and contractions became more intense. She was 3 cm dilated prior to receiving an epidural. She progressed without incident to completely dilated. : 10/06/18 10:33 Pt is doing well this am. She is having mod cramping controlled with Ibuprofen. Min lochia, seun reg diet, no difficulties with voiding or ambulating. Breast feeding is going well, they are working on his shallow latch , but she denies nipple pain now. 10/07/18 13:24 Pt seen and examined. Doing well with no complaints. She is a little sore and having mild cramping when he latches. Relief with Ibu. Mod lochia. Voiding without difficulty. Still working with on baby boy's latch. Wants to go home tomorrow around noon. 10/08/18 10:23 patient is doing well. is exhausted. pain is well controlled. having mild cramping. normal lochia. denies headache and changes in vision. working on breast feeding. ambulating in the room. Vaginal - Delivery Provider Delivery Physician/CNM: Jannette Mccall - Diagnosis Labor: Spontaneous Rupture of Membranes Type: Spontaneous Amniotic Fluid Color: Clear Laceration: 1st Degree Repair: 3-0, Vicryl Delivery Events: Shoulder Dystocia (x 90sec total. No resolution with Gaby , suprapubic pressure, unable initially to deliery posterior arm but able to rotate posterior (left shoulder) anteriorly to release right shoulder from behind the pubic bone.) - Delivery EBL: 250 Data YOSSI: 10/08/18 Gestational Age: 40 week(s) and 0 day(s) Irizarry Delivery Date: 10/06/18 Delivery Time: 00:30 Sex of : Male [place] Weight (gm): 3682 g Score (1 Min): 8 Score (5 Min): 8 Discharge Information - Discharge Information Instruction/Follow Up: Four Weeks (post mood check), Six Weeks (post visit)
== END 2018-10-08 12:45 | disposition home or self-care (01) | DRG 807 ==
LOC: OBSVTOIN 19:18 → FLD 19:18 → FOB 10-06 02:51
PROVIDERS: ADMIT Hospitalist; ATTEND Hospitalist
DX: O70.0 First degree perineal laceration during delivery (principal); Z37.0 Single live birth; O66.0 Obstructed labor due to shoulder dystocia; Z3A.39 39 weeks gestation of pregnancy
CPT/HCPCS: J2370; J2590; J3010; J3105

== ENCOUNTER → 2018-12-17 | Outpatient (CLI) | payer OTHER | LOC: BMCIMAGING 11:05 | PROVIDERS: ATTEND Hospitalist | DX: N60.42 Mammary duct ectasia of left breast (principal) ==